=== PATIENT | male | born 1995 | race Caucasian/White ===

== ENCOUNTER → 2016-08-19 | Outpatient (CLI) | payer BC | LOC: BHSO 13:30 | DX: F41.9 Anxiety disorder, unspecified (principal) | CPT/HCPCS: 90791-AI ==

== ENCOUNTER → 2016-09-05 | Outpatient (CLI) | payer BC | LOC: BHSO 12:52 | DX: F41.1 Generalized anxiety disorder (principal) ==

== ENCOUNTER → 2016-09-18 | Outpatient (CLI) | payer BC | LOC: BHSO 10:25 | DX: F41.9 Anxiety disorder, unspecified (principal) ==